=== PATIENT | female | born 1930 | race Caucasian/White ===

== ENCOUNTER 2020-09-01 09:13 | Observation (INO) ==
[2020-09-01] MEDS ORDERED: ASPIRIN 325 MG TABLET PO STA (09:31)
[2020-09-01] MEDS ORDERED: SODIUM CHLORIDE 0.9% 500 ML IV STA (09:59)
[2020-09-01 10:14] LABS: Basophils % 0.2 % (0.0-0.8); Hematocrit 39.5 VOL% (35.7-47.0); Hemoglobin 13.5 GM/DL (12.0-16.0); Immature Granulocytes % 0.7 %; Immature Granulocytes Absolute 0.12 #; Lymphocytes # 0.9 10*3/uL (1.4-4.0); Lymphocytes % 4.7 % (21.3-54.2); Mean Corpuscular HGB Conc 34.2 GM/DL (32-36); Mean Platelet Volume 10.6 FL (9.6-12.0); Monocytes % 11.1 % (1.7-12.7); Neutrophils % 83.3 % (38.7-73.9); Platelet Count 455 T/CUMM (130-400); Red Blood Count 4.54 MC/CUMM (3.8-5.5); Red Cell Distribution Width 15.4 % (9.3-17.3); White Blood Count 18.4 T/CUMM (4-12)
[2020-09-01 10:20] LABS: Alanine Aminotransferase 18 U/L (13-56); Albumin 3.6 G/DL (3.4-5.0); Alkaline Phosphatase 62 U/L (45-117); Aspartate Amino Transferase 17 U/L (0-37); Bilirubin,Total < 0.39 MG/DL (0.2-1.0); Blood Urea Nitrogen 28 MG/DL (7-18); Calcium 8.9 MG/DL (8.5-10.1); Estimated Glom Filtration Rate 26 ML/MIN; Glucose 151 MG/DL (74-106); Osmolality,Calculated 281.8 MOS/KG (273-304); Total Protein 7.2 G/DL (6.4-8.3)
[2020-09-01 10:33] LABS: Amorphous Crystals,Urine Occasional /HPF (Few); Bacteria,Urine Occasional /HPF (Few); Bilirubin,Urine Negative (Negative); Blood, Urine Negative (Negative); Glucose,Urine (UA) Negative (Negative); Hyaline Casts,Urine 14 /LPF (0-3); Ketones,Urine 5 mg/dL (Negative); Mucus,Urine Occasional /LPF (Occasional); Nitrite,Urine Negative (Negative); Protein,Urine 100 MG/DL; RBC,Urine 1 /HPF (0-4); Squamous Epithelial Cell,Urine Occasional /HPF (0-10); Urine Appearance CLOUDY (Clear); Urine Specific Gravity 1.017 (1.001-1.035); Urine Urobilinogen < 2.0 EU/DL (0.2-1.0); WBC,Urine 2 /HPF (0-6)
[2020-09-01 10:35] LABS: Urine Color Yellow (Yellow)
[2020-09-01 10:38] LABS: Band Neutrophils 1 % (0-10); Lymphocytes 5 % (20-55); Microcytosis Slight; Segmented Neutrophils 89 % (50-85); Total Cells Counted 100
[2020-09-01 10:39] LABS: Hypochromasia Slight; Platelet Estimate Increased
[2020-09-01] MEDS ORDERED: cefTRIAXone 1,000 MG in SODIUM CHLORIDE 0.9% 100 ML IV STA (10:46)
[2020-09-01] MEDS ORDERED: DEXTROSE 50% 25 GM/50 ML VIAL IV PRN (12:28)
[2020-09-01] MEDS ORDERED: ACETAMINOPHEN 325 MG TABLET PO PRN (12:28)
[2020-09-01] MEDS ORDERED: GLUCAGON 1 MG VIAL IM PRN (12:28)
[2020-09-01] MEDS ORDERED: ONDANSETRON 4 MG/2 ML VIAL IV PRN (12:28)
[2020-09-01] MEDS: DEXAMETHASONE 4 MG TABLET PO SCH (14:50)
[2020-09-01] MEDS: HEPARIN 5,000 UNIT/1 ML VIAL SUBCUT SCH ×2 (14:50→21:54)
[2020-09-01] MEDS: guaiFENesin 200 MG/10 ML UDCUP PO PRN ×2 (16:19→21:46)
[2020-09-01] MEDS ORDERED: ENOXAPARIN 30 MG/0.3 ML SYRINGE SUBCUT SCH (21:00)
[2020-09-01] MEDS: BUDESONIDE/FORMOTEROL 80-4.5 INHALER 6.9 GM INH SCH (21:35)
[2020-09-02] MEDS ORDERED: PHENOL 1.4% THROAT SPRAY 177 ML BOTTLE PO PRN (02:00)
[2020-09-02 04:55] LABS: Basophils % 0.2 % (0.0-0.8); Hematocrit 36.1 VOL% (35.7-47.0); Hemoglobin 12.1 GM/DL (12.0-16.0); Immature Granulocytes % 0.7 %; Immature Granulocytes Absolute 0.17 #; Lymphocytes # 1.3 10*3/uL (1.4-4.0); Lymphocytes % 5.3 % (21.3-54.2); Mean Corpuscular HGB Conc 33.5 GM/DL (32-36); Mean Corpuscular Volume 87.6 FL (87-102); Mean Platelet Volume 10.6 FL (9.6-12.0); Monocytes % 6.7 % (1.7-12.7); Neutrophils % 87.1 % (38.7-73.9); Platelet Count 435 T/CUMM (130-400); Red Blood Count 4.12 MC/CUMM (3.8-5.5); Red Cell Distribution Width 15.3 % (9.3-17.3); White Blood Count 25.1 T/CUMM (4-12)
[2020-09-02 05:14] LABS: Calcium 8.7 MG/DL (8.5-10.1); Osmolality,Calculated 284.5 MOS/KG (273-304)
[2020-09-02 05:19] LABS: Ferritin 96.9 ng/ml (8-252)
[2020-09-02 05:20] LABS: Band Neutrophils 6 % (0-10); Lymphocytes 9 % (20-55); Segmented Neutrophils 78 % (50-85); Total Cells Counted 100
[2020-09-02 05:21] LABS: Platelet Estimate Increased
[2020-09-02] MEDS: HEPARIN 5,000 UNIT/1 ML VIAL SUBCUT SCH ×3 (05:33→22:30)
[2020-09-02] MEDS: DEXAMETHASONE 4 MG TABLET PO SCH (09:18)
[2020-09-02] MEDS: BUDESONIDE/FORMOTEROL 80-4.5 INHALER 6.9 GM INH SCH ×2 (09:19→20:38)
[2020-09-02] MEDS: LEVOTHYROXINE 75 MCG TABLET PO SCH (09:19)
[2020-09-02] MEDS: cefTRIAXone 1,000 MG in SYRINGE 1 EACH IV SCH (14:45)
[2020-09-02] MEDS: AZITHROMYCIN INJ 500 MG in SODIUM CHLORIDE 0.9% 250 ML IV SCH (14:45)
[2020-09-03 05:11] LABS: Basophils % 0.1 % (0.0-0.8); Hematocrit 36.6 VOL% (35.7-47.0); Immature Granulocytes % 0.5 %; Lymphocytes # 1.3 10*3/uL (1.4-4.0); Lymphocytes % 6.9 % (21.3-54.2); Mean Corpuscular HGB Conc 32.8 GM/DL (32-36); Mean Corpuscular Volume 87.4 FL (87-102); Mean Platelet Volume 11.1 FL (9.6-12.0); Monocytes % 4.2 % (1.7-12.7); Neutrophils % 88.3 % (38.7-73.9); Platelet Count 487 T/CUMM (130-400); Red Blood Count 4.19 MC/CUMM (3.8-5.5); Red Cell Distribution Width 15.6 % (9.3-17.3)
[2020-09-03 05:37] LABS: Ferritin 122.1 ng/ml (8-252)
[2020-09-03 05:40] LABS: Calcium 8.7 MG/DL (8.5-10.1); Osmolality,Calculated 292.8 MOS/KG (273-304)
[2020-09-03] MEDS: HEPARIN 5,000 UNIT/1 ML VIAL SUBCUT SCH ×2 (05:52→15:43)
[2020-09-03] MEDS ORDERED: ZINC GLUCONATE 50 MG TABLET PO SCH (09:00)
[2020-09-03] MEDS ORDERED: CHOLECALCIFEROL 1,000 UNIT TABLET PO SCH (09:00)
[2020-09-03] MEDS ORDERED: FAMOTIDINE 20 MG TABLET PO SCH (09:00)
[2020-09-03] MEDS ORDERED: ASCORBIC ACID 500 MG TABLET PO SCH (09:00)
[2020-09-03] MEDS ORDERED: CETIRIZINE 10 MG TABLET PO SCH (09:00)
[2020-09-03] MEDS: DEXAMETHASONE 4 MG TABLET PO SCH (09:54)
[2020-09-03] MEDS: LEVOTHYROXINE 75 MCG TABLET PO SCH (09:54)
[2020-09-03] MEDS: AZITHROMYCIN INJ 500 MG in SODIUM CHLORIDE 0.9% 250 ML IV SCH (09:55)
[2020-09-03] MEDS: cefTRIAXone 1,000 MG in SYRINGE 1 EACH IV SCH (10:22)
[2020-09-03] MEDS: BUDESONIDE/FORMOTEROL 80-4.5 INHALER 6.9 GM INH SCH (10:30)
[2020-09-03 16:16] VITALS: BP 121/46
[2020-09-03] MEDS ORDERED: INFLUENZA VIRUS VACCINE 0.5 ML SYRINGE IM ONE (16:49)
[2020-09-03] MEDS ORDERED: PNEUMOCOCCAL VACCINE (13 VALENT) 0.5 ML SYRINGE IM ONE (16:49)
== END 2020-09-03 17:35 | disposition home health service (06) ==
LOC: N.ED 09:13 → N.EDINP 09:13 → SUATTDRO 12:28 → N.2E 13:20
PROVIDERS: ADMIT Internal Medicine Geriatric Medicine; ATTEND Family Medicine